=== PATIENT | male | born 1930 | race Caucasian/White ===

== ENCOUNTER 2017-06-22 13:39 | Observation (INO) | payer MEDICARE, OTHER ==
[~2017-06-22 13:39] MED LIST: ASPI81 PO; ENAL5TAB PO; ISOS60 PO; ULTR50TA PO; VITA200017 PO
[2017-06-22 13:56] VITALS: BP 122/86; PULSE 66; RESP 16; TEMP 98.6; O2SAT 97
[2017-06-22 14:12] VITALS: BP_SYST 120; BP_SYST 122; BP_DIAS 62; BP_DIAS 86; O2SAT 100
[2017-06-22 14:15] VITALS: BP 120/62; PULSE 63; RESP 16; O2SAT 100
[2017-06-22] MEDS ORDERED: FINA5TAB2 PO (14:18)
[2017-06-22] MEDS ORDERED: ENAL5TAB PO (14:18)
[2017-06-22] MEDS ORDERED: TAMS5CAP PO (14:18)
[2017-06-22] MEDS ORDERED: ASPI-516 CHEW (14:18)
[2017-06-22] MEDS ORDERED: ISOS30TA3 PO (14:18)
[2017-06-22] MEDS ORDERED: TRAM50TA PO (14:18)
[2017-06-22] MEDS ORDERED: VITA1000 PO (14:18)
[2017-06-22] MEDS ORDERED: SODIUM CHLORIDE 0.9% FLUSH 10 ML FLUSH IVF PRN (15:00)
[2017-06-22 15:34] LABS: AUTOMATED NEUTROPHIL # 3.8 TH/MM3 (1.8-7.7); BASOPHIL % 0.5 % (0.0-2.0); EOSINOPHIL # 0.2 TH/MM3 (0-0.4); EOSINOPHIL % 3.1 % (0.0-4.0); HEMATOCRIT 37.5 % (39.0-51.0); HEMO FLAGS DIFF FINAL; LYMPH % 32.1 % (9.0-44.0); LYMPHOCYTE # 2.1 TH/MM3 (1.0-4.8); MEAN CELL VOLUME 99.3 FL (80.0-100.0); MEAN CORPUSCULAR HEMOGLOBIN 33.7 PG (27.0-34.0); MEAN CORPUSCULAR HGB CONC 33.9 % (32.0-36.0); MONO % 6.2 % (0.0-8.0); NEUT % 58.1 % (16.0-70.0); PLATELET COUNT 156 TH/MM3 (150-450); RED BLOOD COUNT 3.77 MIL/MM3 (4.50-5.90); RED CELL DISTRIBUTION WIDTH 13.6 % (11.6-17.2); WHITE BLOOD COUNT 6.5 TH/MM3 (4.0-11.0)
[2017-06-22 15:38] LABS: APTT (PATIENT) 26.5 SEC (24.3-30.1); PROTHROMBIN TIME - PATIENT 10.8 SEC (9.8-11.6)
[2017-06-22 15:58] LABS: ANION GAP 4 MEQ/L (5-15); BICARBONATE 27.4 MEQ/L (21.0-32.0); BLOOD UREA NITROGEN 22 MG/DL (7-18); CHLORIDE 107 MEQ/L (98-107); GLOMERULAR FILTRATION RATE 52 ML/MIN (>89); MAGNESIUM 2.1 MG/DL (1.5-2.5); SODIUM (NA) 138 MEQ/L (136-145)
[2017-06-22 16:03] LABS: CREATINE KINASE 86 U/L (39-308); POTASSIUM 4.5 MEQ/L (3.5-5.1)
[2017-06-22 16:10] VITALS: BP 113/56; PULSE 53; RESP 15; O2SAT 100
--- NOTE | 2017-06-22 16:14 | RADRPT ---
EXAM DATE/TIME: 06/22/2017 15:14 [facility] COMPARISON: CHEST SINGLE AP, March 10, 2016, 21:41. INDICATIONS : Chest pain and short of breath. MEDICAL HISTORY : Myocardial infarction. SURGICAL HISTORY : Cardiac stent. ENCOUNTER: Initial ACUITY: 1 day PAIN SCORE: 2/10 LOCATION: Bilateral chest FINDINGS: A single view of the chest demonstrates the lungs to be symmetrically aerated without evidence of mas s, infiltrate or effusion. The cardiomediastinal contours are unremarkable. Osseous structures are intact. CONCLUSION: No acute disease. Giacomo Ramsay Jr., MD on June 22, 2017 at 16:12 Board Certified Radiologist. This report was verified electronically.
[2017-06-22] MEDS ORDERED: SODIUM CHLORID 0.9% 500 ML INJ 500 ML IV ONE (16:15)
--- NOTE | 2017-06-22 16:28 | PD ---
HPI Chief Complaint: Chest Pain Time Seen by Provider: 14:10 Travel History International Travel<30 days: No Contact w/Intl Traveler<30days: No Traveled to known affect area: No History of Present Illness HPI This is an 87 year old male history coronary artery disease, hypertension, who presents today with complaints of left sided chest pressure prior to arrival. Patient states he was working outside with his ladder and in his garage. He states he started experiencing left sided chest pressure with radiation to his left arm. He rates it as a 2 out of 10 on the pain scale. He states he took one of his home nitroglycerin which dropped his pain from a 08/26/00. He states when [facility] arrived they gave him 2 baby aspirin and a further nitroglycerin which took away his pain. He is currently pain-free. The patient had no diaphoresis or nausea with the pain. He had no acute shortness of breath with this episode. There are no other complaints time my examination. PFSH Past Medical History Hx Anticoagulant Therapy: Yes (81 asa) Arthritis: Yes (BACK) Asthma: No Autoimmune Disease: No Heart Rhythm Problems: No Cancer: No Cardiac Catheterization: Yes Cardiovascular Problems: Yes High Cholesterol: No Chemotherapy: No Chest Pain: Yes Congestive Heart Failure: No COPD: No Cerebrovascular Accident: No Diabetes: No Diminished Hearing: No Endocrine: No Gastrointestinal Disorders: Yes GERD: Yes Genitourinary: Yes (Enlarged Prostate) Headaches: Yes Hiatal Hernia: No Hypertension: Yes Immune Disorder: No Implanted Vascular Access Dvce: Yes Kidney Stones: No Musculoskeletal: Yes Neurologic: No Psychiatric: No Reproductive: No Respiratory: No Immunizations Current: Yes Migraines: No Myocardial Infarction: Yes Radiation Therapy: No Renal Failure: No Seizures: No Sickle Cell Disease: No Sleep Apnea: No Thyroid Disease: No Ulcer: Yes Tetanus Vaccination: > 5 Years Influenza Vaccination: Yes Past Surgical History Abdominal Surgery: Yes (COLONOSCOPY/ENDOSCOPY ) AICD: No Arteriovenous Shunt: No Body Medical Devices: CARDIAC STENT PLACEMENT Cardiac Surgery: Yes (STENT 09/05 04/05 / CATH 10/08/12-NO INVERVEN) Coronary Artery Bypass Graft: No Coronary Stent: Yes (X 3) Ear Surgery: No Endocrine Surgery: No Eye Surgery: No Genitourinary Surgery: Yes (Vasectomy 1970.) Gynecologic Surgery: No Insulin Pump: No Joint Replacement: No Oral Surgery: No Pacemaker: No Thoracic Surgery: No Other Surgery: Yes Social History Alcohol Use: No Tobacco Use: No Substance Use: No Allergies-Medications (Allergen,Severity, Reaction): Coded Allergies: naproxen (Unverified Adverse Reaction, Intermediate, ULCERS, 06/22/17) Reported Meds & Prescriptions Reported Meds & Active Scripts Active Reported Finasteride 5 Mg Tab 5 Mg PO DAILY Do not crush. Flomax (Tamsulosin HCl) 0.4 Mg Cap 0.4 Mg PO HS Vitamin D-1000 (Cholecalciferol) 1,000 Unit Tab 2,000 Units PO BID Enalapril (Enalapril Maleate) 5 Mg Tab 5 Mg PO DAILY Tramadol (Tramadol HCl) 50 Mg Tab 50 Mg PO DAILY Isosorbide Mononitrate ER (Isosorbide Mononitrate) 30 Mg Praneeth 30 Mg PO DAILY Aspirin 81 Mg Chew 81 Mg CHEW DAILY Review of Systems Except as stated in HPI: all other systems reviewed are Neg General / Constitutional: No: Fever, Chills HENT: No: Headaches, Neck Pain Cardiovascular: Positive: Chest Pain or Discomfort, No: Palpitations, Irregular Rhythm Respiratory: No: Cough, Shortness of Breath Gastrointestinal: No: Nausea, Vomiting, Abdominal Pain Musculoskeletal: Positive: Other (pressure from his chest rating to his left arm.), No: Weakness, Pain Neurologic: No: Weakness, Dizziness, Headache Physical Exam Narrative GENERAL: Well-nourished, well-developed patient in no acute respiratory distress. SKIN: Focused skin assessment warm/dry. HEAD: Normocephalic/atraumatic. EYES: No scleral icterus. No injection or drainage. NECK: Supple, trachea midline. No JVD or lymphadenopathy. CARDIOVASCULAR: Regular rate and rhythm without murmurs, gallops, or rubs. RESPIRATORY: Breath sounds equal bilaterally. No accessory muscle use. GASTROINTESTINAL: Abdomen soft, non-tender, nondistended. MUSCULOSKELETAL: No cyanosis, or edema. NEUROLOGICAL: Awake and alert. Cranial nerves II through XII intact. Motor grossly within normal limits. Five out of 5 muscle strength in all muscle groups. Normal speech. Data Data Last Documented VS Vital Signs Date Time Temp Pulse Resp B/P (MAP) Pulse Ox O2 Delivery O2 Flow Rate FiO2 06/22/17 14:15 63 16 120/62 (81) 100 Nasal Cannula 2.00 06/22/17 13:56 98.6 Orders Orders Electrocardiogram (06/22/17 ) Basic Metabolic Panel (Bmp) (06/22/17 14:54) Ckmb (Isoenzyme) Profile (06/22/17 14:54) Complete Blood Count With Diff (06/22/17 14:54) Magnesium (Mg) (06/22/17 14:54) Prothrombin Time / Inr (Pt) (06/22/17 14:54) Act Partial Throm Time (Ptt) (06/22/17 14:54) Troponin I (06/22/17 14:54) Chest, Single Ap (06/22/17 14:54) Ecg Monitoring (06/22/17 14:54) Bilateral Bp Monitoring (06/22/17 14:54) Iv Access Insert/Monitor (06/22/17 14:54) Oximetry (06/22/17 14:54) Oxygen Administration (06/22/17 14:54) Sodium Chloride 0.9% Flush (Ns Flush) (06/22/17 15:00) Sodium Chlorid 0.9% 500 Ml Inj (Ns 500 M (06/22/17 16:15) Labs Laboratory Tests Test 06/22/17 15:05 White Blood Count 6.5 TH/MM3 Red Blood Count 3.77 MIL/MM3 Hemoglobin 12.7 GM/DL Hematocrit 37.5 % Mean Corpuscular Volume 99.3 FL Mean Corpuscular Hemoglobin 33.7 PG Mean Corpuscular Hemoglobin Concent 33.9 % Red Cell Distribution Width 13.6 % Platelet Count 156 TH/MM3 Mean Platelet Volume 8.8 FL Neutrophils (%) (Auto) 58.1 % Lymphocytes (%) (Auto) 32.1 % Monocytes (%) (Auto) 6.2 % Eosinophils (%) (Auto) 3.1 % Basophils (%) (Auto) 0.5 % Neutrophils # (Auto) 3.8 TH/MM3 Lymphocytes # (Auto) 2.1 TH/MM3 Monocytes # (Auto) 0.4 TH/MM3 Eosinophils # (Auto) 0.2 TH/MM3 Basophils # (Auto) 0.0 TH/MM3 CBC Comment DIFF FINAL Differential Comment Prothrombin Time 10.8 SEC Prothromb Time International Ratio 1.0 RATIO Activated Partial Thromboplast Time 26.5 SEC Blood Urea Nitrogen 22 MG/DL Creatinine 1.31 MG/DL Random Glucose 123 MG/DL Calcium Level 8.5 MG/DL Magnesium Level 2.1 MG/DL Sodium Level 138 MEQ/L Potassium Level 4.5 MEQ/L Chloride Level 107 MEQ/L Carbon Dioxide Level 27.4 MEQ/L Anion Gap 4 MEQ/L Estimat Glomerular Filtration Rate 52 ML/MIN Total Creatine Kinase 86 U/L Troponin I LESS THAN 0.02 NG/ML MDM Medical Decision Making Medical Screen Exam Complete: Yes Emergency Medical Condition: Yes Differential Diagnosis ACS versus GERD versus pneumonia Narrative Course A 7-year-old male with history of coronary artery disease, hypertension, and presents here after having an episode of chest pain/tightness across his chest rating to his left shoulder while working in his garage. The patient is pain- free now. He took 2 nitroglycerin tablets which resolved his pain from a 220. He is pain-free now. EKG shows no evidence of acute ST elevation or depression. Cardiac enzymes are within normal limits. Ryan Betancourt MD Jun 22, 2017 16:28
[2017-06-22] MEDS ORDERED: SODIUM CHLORIDE 0.9% FLUSH 10 ML FLUSH IV FLUSH PRN (17:30)
[2017-06-22 18:36] VITALS: BP 119/55
[2017-06-22] MEDS: SODIUM CHLORIDE 0.9% FLUSH 10 ML FLUSH IV FLUSH SCH (21:00)
[2017-06-22 21:07] VITALS: BP 135/60; PULSE 61; RESP 16; TEMP 97.5; O2SAT 98
[2017-06-23] VITALS (7 sets, daily range): BP systolic 104–127; BP diastolic 57–59; PULSE 50–59; RESP 14–18; TEMP 97.3–98; O2SAT 94–97
[2017-06-23] MEDS ORDERED: ISOSORBIDE MONONITRATE 30 MG TAB PO SCH (08:52)
[2017-06-23] MEDS ORDERED: ASPIRIN 325 MG TAB PO SCH (09:00)
[2017-06-23] MEDS ORDERED: ENALAPRIL MALEATE 5 MG TAB PO SCH (09:00)
[2017-06-23] MEDS ORDERED: FINASTERIDE 5 MG TAB PO SCH (09:00)
[2017-06-23] MEDS: SODIUM CHLORIDE 0.9% FLUSH 10 ML FLUSH IV FLUSH SCH (09:33)
--- NOTE | 2017-06-23 11:01 | HHI.HP ---
HPI Primary Care Physician Oliver Lin MD Chief Complaint Chest pain History of Present Illness This is an 87-year-old male with history of CAD that presents to ED with a complaint of developing chest discomfort after working outside at his home yesterday. Is a left-sided discomfort. Described as pressure. Took a nitroglycerin tablet which seemed to help. States it lasted 15-20 minutes. Denied shortness of breath, nausea, or diaphoresis. States it does feel similar to when he needed stents in the past. Denies recent illness. Denies fevers or chills. Voices compliance with medications. He follows Dr. Upton cardiology in outpatient setting. Currently chest pain-free. Review of Systems General: Patient denies fevers, chills recent, and recent travel HEENT: Patient denies headache, sore throat, difficulty swallowing. Cardiovascular: Has the chest discomfort as mentioned above. Denies sensation of heart beating rapidly or irregularly. No syncope. Denies diaphoresis. Respiratory: Denies shortness of breath or inspirational chest discomfort. Denies coughing wheezing or hemoptysis. GI: Patient denies nausea, vomiting, diarrhea, abdominal pain, bloody stools. Musculoskeletal: Patient denies joint pain or edema. Denies calf pain or edema. Neurovascular: Patient denies numbness, tingling, weakness in extremities. Denies headache. Endocrine: Denies polyuria and polydipsia. Hematologic: Denies easy bruising. Skin: Denies rash or itching. Past Family Social History Allergies: Coded Allergies: naproxen (Unverified Adverse Reaction, Intermediate, ULCERS, 06/22/17) Past Medical History CAD with stents. Hypertension and hyperlipidemia. Denies diabetes. Past Surgical History Heart catheterizations with interventions. Reported Medications Reported Meds & Active Scripts Active Reported Finasteride 5 Mg Tab 5 Mg PO DAILY Do not crush. Flomax (Tamsulosin HCl) 0.4 Mg Cap 0.4 Mg PO HS Vitamin D-1000 (Cholecalciferol) 1,000 Unit Tab 2,000 Units PO BID Enalapril (Enalapril Maleate) 5 Mg Tab 5 Mg PO DAILY Tramadol (Tramadol HCl) 50 Mg Tab 50 Mg PO DAILY Isosorbide Mononitrate ER (Isosorbide Mononitrate) 30 Mg Praneeth 30 Mg PO DAILY Aspirin 81 Mg Chew 81 Mg CHEW DAILY Active Ordered Medications Current Medications Medications (Trade) Dose Ordered Sig/Latanya Route Start Time Stop Time Status Last Admin (NS Flush) 2 ml UNSCH PRN IVF 06/22/17 15:00 (NS Flush) 2 ml UNSCH PRN IV FLUSH 06/22/17 17:30 (NS Flush) 2 ml BID IV FLUSH 06/22/17 21:00 06/23/17 09:33 (Vasotec) 5 mg DAILY PO 06/23/17 09:00 06/23/17 09:34 (Proscar) 5 mg DAILY PO 06/23/17 09:00 06/23/17 09:33 (Imdur) 30 mg DAILY@0700 PO 06/23/17 08:52 06/23/17 09:34 (Flomax) 0.4 mg HS PO 06/23/17 21:00 (Aspirin) 325 mg DAILY PO 06/23/17 09:00 06/23/17 09:34 Family History There is family history of CAD. Social History Patient does not smoke, drink alcohol, or use illicit drugs. Physical Exam Vital Signs Vital Signs Date Time Temp Pulse Resp B/P (MAP) Pulse Ox O2 Delivery O2 Flow Rate FiO2 06/23/17 07:48 97.3 52 18 127/57 (80) 97 06/23/17 04:55 97.7 56 14 105/57 (73) 94 06/23/17 01:44 21 06/23/17 00:02 97.7 57 104/58 (73) 96 06/22/17 21:07 97.5 61 16 135/60 (85) 98 06/22/17 18:36 57 18 119/55 (76) 100 Nasal Cannula 2.00 06/22/17 16:10 53 15 113/56 (75) 100 Nasal Cannula 2.00 06/22/17 14:15 63 16 120/62 (81) 100 Nasal Cannula 2.00 06/22/17 14:12 100 06/22/17 14:12 Nasal Cannula 2.00 06/22/17 14:12 122/86 (98) 120/62 (81) 06/22/17 13:56 98.6 66 16 122/86 (98) 97 Room Air Physical Exam GENERAL: This is a well-nourished, well-developed patient, in no apparent distress. Patient speaks in clear complete sentences. Patient is pleasant. HEENT: Head is atraumatic and normocephalic. Neck is supple without lymphadenopathy and trachea is midline. No JVD or carotid bruits. CARDIOVASCULAR: Regular rate and rhythm without murmurs, gallops, or rubs. RESPIRATORY: Clear to auscultation. Breath sounds equal bilaterally. No wheezes , rales, or rhonchi. Chest wall is nontender. No use of accessory muscles. GASTROINTESTINAL: Abdomen is nontender, nondistended. Abdomen soft. No obvious pulsatile mass or bruit. No CVA tenderness. Strong femoral pulses bilaterally. Normal bowel sounds in all quadrants. MUSCULOSKELETAL: Patient is moving upper and lower extremities freely. No calf tenderness or edema, no Homans sign. Strong pulses in upper and lower extremities. NEUROLOGICAL: Patient is alert and oriented. Cranial nerves 2-12 are grossly intact. No focal deficits and speech is clear. SKIN: No rash and turgor is normal. Laboratory Laboratory Tests Test 06/22/17 15:05 06/22/17 17:40 06/23/17 01:45 06/23/17 07:55 White Blood Count 6.5 Red Blood Count 3.77 Hemoglobin 12.7 Hematocrit 37.5 Mean Corpuscular Volume 99.3 Mean Corpuscular Hemoglobin 33.7 Mean Corpuscular Hemoglobin Concent 33.9 Red Cell Distribution Width 13.6 Platelet Count 156 Mean Platelet Volume 8.8 Neutrophils (%) (Auto) 58.1 Lymphocytes (%) (Auto) 32.1 Monocytes (%) (Auto) 6.2 Eosinophils (%) (Auto) 3.1 Basophils (%) (Auto) 0.5 Neutrophils # (Auto) 3.8 Lymphocytes # (Auto) 2.1 Monocytes # (Auto) 0.4 Eosinophils # (Auto) 0.2 Basophils # (Auto) 0.0 CBC Comment DIFF FINAL Differential Comment Prothrombin Time 10.8 Prothromb Time International Ratio 1.0 Activated Partial Thromboplast Time 26.5 Blood Urea Nitrogen 22 Creatinine 1.31 Random Glucose 123 Calcium Level 8.5 Magnesium Level 2.1 Sodium Level 138 Potassium Level 4.5 Chloride Level 107 Carbon Dioxide Level 27.4 Anion Gap 4 Estimat Glomerular Filtration Rate 52 Total Creatine Kinase 86 32 31 Troponin I LESS THAN 0.02 0.04 0.08 0.05 Result Diagram: 06/22/17 1505 06/22/17 1505 Imaging Last 48 hours Impressions Chest X-Ray 06/22/17 1454 Signed Impressions: Service Date/Time: Thursday, June 22, 2017 15:14 - CONCLUSION: No acute disease. Giacomo Ramsay Jr., MD Course EKGs are sinus rhythm with nonspecific T-wave changes. Caprini VTE Risk Assessment Caprini VTE Risk Assessment: Mod/High Risk (score >= 2) Caprini Risk Assessment Model Point Value = 1 Point Value = 2 Point Value = 3 Point Value = 5 Age 41-60 Minor surgery BMI > 25 kg/m2 Swollen legs Varicose veins or History of unexplained or recurrent spontaneous Oral contraceptives or hormone replacement Sepsis (< 1 month) Serious lung disease, including pneumonia (< 1 month) Abnormal pulmonary function Acute myocardial infarction Congestive heart failure (< 1 month) History of inflammatory bowel disease Medical patient at bed rest Age 61-74 Arthroscopic surgery Major open surgery (> 45 min) Laparoscopic surgery (> 45 min) Malignancy Confined to bed (> 72 hours) Immobilizing plaster cast Central venous access Age >= 75 History of VTE Family history of VTE Factor V Leiden Prothrombin [id number] Lupus anticoagulant Anticardiolipin antibodies Elevated serum homocysteine Heparin-induced thrombocytopenia Other congenital or acquired thrombophilia Stroke (< 1 month) Elective arthroplasty Hip, pelvis, or leg fracture Acute spinal cord injury (< 1 month) Prophylaxis Regimen Total Risk Factor Score Risk Level Prophylaxis Regimen 0-1 Low Early ambulation 2 Moderate Order ONE of the following: *Sequential Compression Device (SCD) *Heparin 5000 units SQ BID 3-4 Higher Order ONE of the following medications: *Heparin 5000 units SQ TID *Enoxaparin/Lovenox 40 mg SQ daily (WT < 150 kg, CrCl > 30 mL/min) *Enoxaparin/Lovenox 30 mg SQ daily (WT < 150 kg, CrCl > 10-29 mL/min) *Enoxaparin/Lovenox 30 mg SQ BID (WT < 150 kg, CrCl > 30 mL/min) AND/OR *Sequential Compression Device (SCD) 5 or more Highest Order ONE of the following medications: *Heparin 5000 units SQ TID (Preferred with Epidurals) *Enoxaparin/Lovenox 40 mg SQ daily (WT < 150 kg, CrCl > 30 mL/min) *Enoxaparin/Lovenox 30 mg SQ daily (WT < 150 kg, CrCl > 10-29 mL/min) *Enoxaparin/Lovenox 30 mg SQ BID (WT < 150 kg, CrCl > 30 mL/min) AND *Sequential Compression Device (SCD) Assessment and Plan Assessment and Plan * Chest pain: Patient has had an elevated troponin on his third set. It bumped to 0.08. Patient was seen by Dr. Upton cardiology in the chest pain center. Cardiac catheterization was offered however the patient would rather a chemical stress test. Decision was then made to repeat a fourth troponin and that had not increased further and we would proceed with the stress test. It was explained to the patient that the stress test would not be the most conclusive study but the patient still would rather this. His fourth troponin normalized to 0.05. He will not Lexiscan. Patient's disposition will be pending the results of the stress test. He should follow-up with his regional sales leader as well as PCP. * CAD: We'll reassess with stress testing. Patient to follow-up with his regional sales leader. Continue current medications. * Hypertension: Continue current medication. * Hyperlipidemia: Continue current medication. Patient stable this time. He is agreeable to this plan. Silvio Mascorro Jun 23, 2017 11:01
[2017-06-23] MEDS ORDERED: REGADENOSON INJ 0.4 MG/5 ML SYR ONE (13:52)
--- NOTE | 2017-06-23 16:15 | RADRPT ---
EXAM DATE/TIME: 06/23/2017 13:12 [facility] COMPARISON: No previous studies available for comparison. INDICATIONS : Left sided chest pain. Angina. DOSE: 25.9 mCi Tc99m Myoview at stress. 8.5 mCi Tc99m Myoview at rest. 0.4 mg Lexiscan STRESS SYMPTOMS: Short of breath and headache. EJECTION FRACTION: 32% MEDICAL HISTORY : Myocardial infarction. Cardiovascular disease Hypertension. SURGICAL HISTORY : Coronary artery stent. ENCOUNTER: Initial ACUITY: 1 day PAIN SCALE: 2/10 LOCATION: Left chest TECHNIQUE: The patient underwent pharmacologic stress with infusion of prescribed dose. Continuous ECG tracing was monitored during stress. Gated SPECT imaging was performed after stress and conventional SPECT i maging was performed at rest. The examination was performed on a SPECT/CT scanner, both attenuation and non-corrected datasets were reviewed. FINDINGS: DISTRIBUTION: The maximum perfused segment at stress is in the anterolateral wall. PERFUSION STUDY: The examination demonstrates a moderate in size, fixed perfusion defect involving the septum and port ions of the anteroseptal wall. No reversible perfusion defect is identified. GATED STUDY: There is hypokinesis involving the septum and anteroseptal wall. CONCLUSION: 1. Large, fixed perfusion defect with associated wall motion abnormality involving the septum. Exam w ould suggest previous infarct. No reversible perfusion defect is identified. Ejection fraction is hector te low at 32%. RISK CATEGORY: High (>3% Annual Mortality Rate) Sheng Morgan MD on June 23, 2017 at 16:11 Board Certified Radiologist. This report was verified electronically.
--- NOTE | 2017-06-23 16:45 | HHI.DCPOC ---
Discharge Care Plan Diagnosis: (1) Chest pain (2) Hx of coronary artery disease (3) H/O heart artery stent (4) Cardiomyopathy (5) Hypertension (6) Hyperlipidemia (7) Chronic kidney disease (CKD) Goals to Promote Your Health * To prevent worsening of your condition and complications * To maintain your health at the optimal level Directions to Meet Your Goals Take your medications as prescribed Follow your dietary instruction Follow activity as directed Keep your appointments as scheduled Take your immunizations and boosters as scheduled If your symptoms worsen call your PCP, if no PCP go to Urgent Care Center or Emergency Room Smoking is Dangerous to Your Health. Avoid second hand smoke Call the 24-hour hour crisis hotline for domestic abuse at Silvio Mascorro Jun 23, 2017 16:45
[2017-06-23] MEDS ORDERED: TAMSULOSIN HCL 0.4 MG CAP PO SCH (21:00)
--- NOTE | 2017-06-23 21:56 | EKG ---
Date Performed: 06/23/2017 Time Performed: 05:05:10 PTAGE: 87 years EKG: SINUS BRADYCARDIA WITH OCCASIONAL VENTRICULAR PREMATURE COMPLEXES MARKED LEFT AXIS DEVIATIO N INTRAVENTRICULAR CONDUCTION DELAY ABNORMAL ECG Since PREVIOUS TRACING , no significant change noted DOCTOR: Kristen Upton Interpretating Date/Time 06/23/2017 21:55:19
--- NOTE | 2017-06-23 21:57 | EKG ---
Date Performed: 06/23/2017 Time Performed: 00:11:58 PTAGE: 87 years EKG: SINUS BRADYCARDIA WITH FIRST DEGREE AV BLOCK MARKED LEFT AXIS DEVIATION INTRAVENTRICULAR CO NDUCTION DELAY ABNORMAL ECG Since PREVIOUS TRACING , no significant change noted PREVIOUS TRACIN06/22/2017 17.47 DOCTOR: Kristen Upton Interpretating Date/Time 06/23/2017 21:56:23
--- NOTE | 2017-06-23 21:58 | TR ---
Date Performed: 06/23/2017 Time Performed: 14:02:07 DOCTOR: Kristen Upton DRUG LIST: CLINICAL HISTORY: ANGINA REASON FOR TEST: REASON FOR ENDING: OBSERVATION: CONCLUSION: Lexiscan stress test was performed under standard four minute protocol. Radionuclid e was injected one minute prior to ending the test. No electrocardiographic abormalities were present to suggest ischemia. Nuclear imaging and interpretation are pending. COMMENTS:
--- NOTE | 2017-06-23 22:02 | EKG ---
Date Performed: 06/22/2017 Time Performed: 14:12:03 PTAGE: 87 years EKG: Sinus rhythm WITH OCCASIONAL VENTRICULAR PREMATURE COMPLEXES MARKED LEFT AXIS DEVIATION ANTEROSEPTAL MYOCARDIAL I NFARCTION ABNORMAL ECG Since PREVIOUS TRACING , no significant change noted DOCTOR: Kristen Upton Interpretating Date/Time 06/23/2017 22:01:35
--- NOTE | 2017-06-23 22:05 | EKG ---
Date Performed: 06/22/2017 Time Performed: 17:47:36 PTAGE: 87 years EKG: SINUS BRADYCARDIA WITH OCCASIONAL VENTRICULAR PREMATURE COMPLEXES MARKED LEFT AXIS DEVIATIO N ANTEROSEPTAL MYOCARDIAL INFARCTION- OLD Since PREVIOUS TRACING , no significant change noted PREVIOUS TRACIN03/10/2016 21.13 DOCTOR: Kristen Upton Interpretating Date/Time 06/23/2017 22:03:23
== END 2017-06-23 17:36 | disposition home or self-care (01) ==
LOC: NEPC 13:39 → NEDA 17:23 → NEPGCP 18:37
PROVIDERS: ADMIT Internal Medicine Cardiovascular Disease; ATTEND Internal Medicine Cardiovascular Disease
DX: R07.9 Chest pain, unspecified (principal); N18.9 Chronic kidney disease, unspecified; I12.9 Hypertensive chronic kidney disease with stage 1 through stage 4 chronic kidney disease, or unspecified chronic kidney disease; I25.10 Atherosclerotic heart disease of native coronary artery without angina pectoris; Z95.5 Presence of coronary angioplasty implant and graft; E78.5 Hyperlipidemia, unspecified; I42.9 Cardiomyopathy, unspecified; M46.90 Unspecified inflammatory spondylopathy, site unspecified; K21.9 Gastro-esophageal reflux disease without esophagitis; N40.0 Benign prostatic hyperplasia without lower urinary tract symptoms; R51 Headache; I25.2 Old myocardial infarction; Z79.899 Other long term (current) drug therapy; R74.8 Abnormal levels of other serum enzymes; R94.31 Abnormal electrocardiogram [ECG] [EKG]
CPT/HCPCS: 71010; 78452; 80048; 82550; 83735; 84484; 85025; 85610; 85730; 93005; 93017; 96360; 99285; A9502; G0378; J2785; J7040